=== PATIENT | male | born 1965 | race Caucasian/White ===

== ENCOUNTER 2023-08-23 15:37 | Emergency (ER) | payer OTHER, SELFPAY ==
[2023-08-23] VITALS (67 sets, daily range): BP systolic 82–163; BP diastolic 44–144; PULSE 49–115; RESP 12–39; TEMP 36.2; O2SAT 92–100
--- NOTE | ~2023-08-23 | XR_ITS ---
EXAMINATION: XR chest 1V portable Exam Date/Time: 08/23/2023 21:15 CLAMMER HISTORY: SHORTNESS OF BREATH. Comparison: 08/23/2023 at 4:41 PM. RESULT: Lines, tubes, and devices: None. Lungs and pleura: Clear. Cardiomediastinal silhouette: Stable. Other: No acute osseous or upper abdominal finding. IMPRESSION: No acute cardiopulmonary process. Reviewed, dictated and finalized at location K. MER
--- NOTE | ~2023-08-23 | XR_ITS ---
EXAMINATION: XR chest 2V Exam Date/Time: 08/23/2023 16:35 ENGRAVER TENDER HISTORY: mid-left sided Chest pain, shortness of breath, cough Comparison: None. RESULT: Lines, tubes, and devices: None. Lungs and pleura: Clear. Cardiomediastinal silhouette: Unremarkable. Other: No acute osseous or upper abdominal finding. IMPRESSION: No acute cardiopulmonary process. Reviewed, dictated and finalized at location K. AVER TENDER
--- NOTE | 2023-08-23 15:38 | ECG_ITS ---
Measurements Intervals [place] Rate: 59 P: 4 KS: 163 QRS: -20 QRSD: 98 T: 93 QT: 402 QTc: 400 Interpretive Statements SINUS BRADYCARDIA LOW QRS VOLTAGE IN PRECORDIAL LEADS ANTEROSEPTAL INFARCT, AGE INDETERMINATE BORDERLINE ST-T WAVE ABNORMALITY- HIGH LATERAL LEADS BASELINE ARTIFACT- I, II, III, V4 ABNORMAL ECG NO PREVIOUS ECG AVAILABLE FOR COMPARISON Electronically Signed On 08-23-2023 19:22:27 MAGAZINE REPAIRER by Tommy Núñez D.O.
--- NOTE | 2023-08-23 15:44 | PC.NURSE ---
patient states he took 2 asprin 325 prior to arrival.
--- NOTE | 2023-08-23 16:02 | ED.CHESTPAIN ---
HPI - Chest Pain General Chief Complaint: Chest Pain Stated Complaint: chest pain Time Seen by Provider: 08/23/23 15:38 Source: patient and family Mode of arrival: ambulatory Limitations: no limitations History of Present Illness HPI narrative: 58 yo M with no significant PMHx, who does not have a PCP, presents to ED with his mother due to chest pain, described as substernal, squeezing sensation, radiating to his left neck. This has been going on and off for some time, a/w stress and anxiety attacks related to work and some shortness of breath. Pt denied smoking history. His father at age 61 from a heart attack. Each chest pain episodes last about several minutes. Onset (ago): day(s) Timing of current episode: episodic Prior episodes: Yes Pain location: substernal and left chest Pain radiation: neck Severity: moderate Quality: tightness, aching and crushing Relieving factors: other (aspirin) Exacerbating factors: nothing Associated symptoms: dyspnea Treatment prior to arrival: aspirin Related Data Home Medications Medication Instructions Recorded Confirmed No Home Medications 08/23/23 08/23/23 Allergies Allergy/AdvReac Type Severity Reaction Status Date / Time No Known Allergies Allergy Verified 08/23/23 15:43 Review of Systems Constitutional: Constitutional: Reports as per HPI and Reports no additional constitutional complaints Eyes: Eyes: Reports as per HPI and Reports no additional eye complaints ENT: Reports system reviewed and no additional complaints, except as documented and Reports as per HPI Cardiovascular: Cardiovascular: Reports as per HPI and Reports no additional cardiovascular complaints Respiratory: Respiratory: Reports as per HPI and Reports no additional respiratory complaints Gastrointestinal: Gastrointestinal: Reports as per HPI and Reports no additional gastrointestinal complaints Genitourinary: Genitourinary: Reports as per HPI Musculoskeletal: Musculoskeletal: Reports no additional musculoskeletal complaints and Reports as per HPI Integumentary/Breasts: Skin/Breast: Reports system reviewed and no additional complaints, except as docu and Reports as per HPI Neurologic: Reports system reviewed and no additional complaints, except as documented and Reports as per HPI Psychiatric: Psychiatric: Reports no additional psychiatric complaints and Reports as per HPI Endocrine: Endocrine: Reports no additional endocrine complaints and Reports as per HPI Hematologic/Lymphatic: Hematologic/Lymphatic: Reports no additional hematologic/lymphatic complaints and Reports as per HPI Allergic/Immunologic: Allergic/Immunologic: Reports no additional allergic/immunologic complaints and Reports as per HPI Exam Const: General: cooperative, healthy appearing, comfortable, no acute distress, well developed, alert, awake, average body habitus and well nourished Nutritional Appearance: average body habitus and well nourished Orientation/consciousness: oriented to person, oriented to place and oriented to time Limitations: no limitations HENMT: Head: normal to inspection Ears: hearing grossly normal bilaterally, external ears normal and TM's normal bilaterally Face/Nose/Sinus: Normal external nose present, Normal nares present, No nasal polyps present, Normal nasal mucous membranes and turbinates present, Normal septum present, No nasal discharge present, normal facial exam, sinuses nontender and face symmetric Face and sinus: normal facial exam, sinuses nontender and face symmetric Mouth: Yes Normal oral and palatal mucosa present, Yes lip normal, Yes tongue normal, Yes Normal salivary glands and ducts present, Yes oropharynx normal and Yes moist mucous membranes Teeth and gingiva: dentition normal and gingiva normal Throat: posterior oropharynx normal, tonsils normal and uvula midline Eyes: General: appearance normal, both eyes and all related structures Eyelids: eyelids normal Conjunctivae: conjunctiv
[2023-08-23 16:13] LABS: Basophils Absolute Auto 0.07 K/mm3 (0.00-0.10); Basophils Percent Auto 0.7 % (0.0-1.0); Eosinophils Absolute Auto 0.59 K/mm3 (0.02-0.50); Eosinophils Percent Auto 6.3 % (1.0-6.0); Hematocrit 42.1 % (40.0-54.0); Hemoglobin 13.9 g/dL (14.0-18.0); Immature Granulocyte Absolute 0.04 K/mm3 (0.00-0.00); Immature Granulocyte Percent A 0.4 % (0.0-0.0); Lymphocytes Absolute Auto 2.78 K/mm3 (1.10-4.50); Lymphocytes Percent Auto 29.6 % (18.0-42.0); Mean Corpuscular Hemoglobin 29.2 pg (27.0-31.0); Mean Corpuscular Volume 88.4 fL (78.0-102.0); Mean Platelet Volume 8.8 fl (8.7-11.0); Monocytes Absolute Auto 0.69 K/mm3 (0.10-0.90); Monocytes Percent Auto 7.3 % (2.0-11.0); Neutrophils Absolute Auto 5.2 K/mm3 (1.7-7.2); Neutrophils Percent Auto 55.7 % (50.0-70.0); Platelet Count Result 186 K/mm3 (150-420); Red Blood Count 4.76 M/mm3 (4.70-6.10); Red Cell Distribution Width 13.3 % (11.6-14.4); White Blood Count 9.4 K/mm3 (4.8-10.8)
[2023-08-23 16:36] LABS: Alanine Aminotransferase 23 U/L (16-63); Albumin Level 3.1 g/dL (3.4-5.0); Alkaline Phosphatase 89 U/L (46-116); Anion Gap 6 mmol/L (8-16); Aspartate Amino Transferase 12 U/L (15-37); Bilirubin,Total 0.2 mg/dL (0.00-1.00); Blood Urea Nitrogen 16 mg/dL (7-18); Calcium 8.3 mg/dL (8.5-10.1); Carbon Dioxide 30 mmol/L (21-32); Chloride 105 mmol/L (98-108); Estimated CRCL calculation 99 ml/min; Estimated Glomerular Filt Rate > 60; Glucose 160 mg/dL (70-99); NT Pro B Type Natriuretic Pept 149 pg/mL (0-125); Osmolality Calculated 296 mOsm/kg (285-295); Potassium 3.8 mmol/L (3.5-5.1); Sodium 141 mmol/L (136-145); Total Protein 6.6 g/dL (6.4-8.2)
[2023-08-23 16:37] LABS: Troponin I 246.4 ng/L (0.00-60.4)
--- NOTE | 2023-08-23 16:37 | PC.NURSE ---
Elevated Troponin at 246.3, erp made aware
[2023-08-23] MEDS: HEPARIN SODIUM 5,000 UNITS/ML VIAL 4000 UNITS IV PUSH (17:10)
[2023-08-23] MEDS: HEPARIN SOD/D5W 100 UNITS/ML 25,000 UNITS/250 ML BAG 10 UNITS IV CONT (17:11)
[2023-08-23 17:19] LABS: INR 0.9; Partial Thromboplastin Time 29.5 SEC (23.90-30.70); Prothrombin Time 10.8 Seconds (9.64-11.0)
[2023-08-23 19:24] LABS: Troponin I 582.5 ng/L (0.00-60.4)
[2023-08-23] MEDS: SODIUM CHLORIDE 0.9% IV 1,000 ML 125 ML IV CONT (19:31)
--- NOTE | 2023-08-23 19:43 | PC.NURSE ---
received bed assingment for pt from [facility] @ 1939, will call report now
--- NOTE | 2023-08-23 19:57 | PC.NURSE ---
received bed assignment from [facility] @ [facility] @ 193--report called to Annabelle CONTRERAS on 2nd floor @ 1947--contacted [facility] @ 1953 but they are not available for transfer--contacted [facility] @ 1955, awaiting their arrival
[2023-08-23] MEDS: TICAGRELOR 90 MG TABLET 180 MG PO (20:12)
--- NOTE | 2023-08-23 20:19 | PC.NURSE ---
2007 called [facility] but EMS unavailable--called [facility] back @ 2009 and they are to take pt after dropping one off @ [facility]--received call from [facility] with update that EMS was 10 minutes out from [place] but would be coming for pt right after
[2023-08-23] MEDS: DOPamine 400 MG/D5W 250 ML 400 MG/250 ML BAG 23.89 MG IV CONT (21:46)
--- NOTE | 2023-08-23 21:47 | PC.NURSE ---
upon arrival of ems, pt stating that he is starting to feel nauseated, hr dropping and pt hypotensive, pt transferred to room 7, ivf increased to bolus on pressure bag, heparin still infusing per order via med pump, 2nd iv started to l fa, 20g, pt received 0.5 atropine @ 2120, 0.5mg atropine @ 2125 and 0.5 atropine @ 2131, 3rd iv established to r hand, 18g, pt received 1mcg epi @ 2134 and 11mcg @ 2138, dopamine infusion initiated @ 2145 @ 5 mcg, dopamine infusion rate dropped to 2.5mcg @ 2148 and increased to 3.75mcg @ 2156--repeat ekg completed, rn and emt remains @ bedside, 1st liter ns completed, 2nd liter ns initiated and infusing w/i on pressure bag
[2023-08-23 22:05] LABS: Troponin I 1486.9 ng/L (0.00-60.4)
[2023-08-23] MEDS: KETAMINE HCL (*CRX) 500 MG/10 ML VIAL 75 MG IV PUSH (22:05)
--- NOTE | 2023-08-23 23:22 | PC.NURSE ---
pt finished 2nd liter ns @ 1710
== END 2023-08-23 23:20 | disposition short-term general hospital (02) ==
PROVIDERS: Emergency Provider Emergency Medicine
DX: I21.4 Non-ST elevation (NSTEMI) myocardial infarction (principal)
CPT/HCPCS: 36415; 71045; 71046; 80053; 83880; 84484; 85025; 85380; 85610; 85730; 93005; 96365; 96366; 96368; 96375; 99285; A9270; J0171; J0461; J1265; J1644; J7030